=== PATIENT | female | born 1990 | race African-American/Black ===

== ENCOUNTER 2022-10-05 22:30 | Inpatient (IN) | payer OTHER ==
[2022-10-06] MEDS ORDERED: PROMETHAZINE HCL 25 MG/1 ML VIAL IVPUSH ONE (00:15)
[2022-10-06] MEDS: DEXTROSE 5%-LACTATED RINGERS 1,000 ML IV SCH ×2 (00:15→10:16)
[2022-10-06] MEDS ORDERED: DINOPROSTONE 10 MG VAGINAL SUPPOSITORY VG ONE (00:17)
[2022-10-06] MEDS ORDERED: PROMETHAZINE HCL 25 MG/1 ML VIAL ONE (01:12)
[2022-10-06] MEDS ORDERED: BUTORPHANOL TARTRATE 2 MG/ML VIAL ONE (01:12)
[2022-10-06] MEDS ORDERED: AMPICILLIN - 2 GM in SODIUM CHLORIDE 100 ML IVPB ONE (01:15)
[2022-10-06] MEDS ORDERED: AMPICILLIN SODIUM 2 GM VIAL ONE (01:20)
[2022-10-06 01:23] LABS: BASO % 0.3 % (0-2.0); EOS % 0.2 % (0-4.5); HEMATOCRIT 31.9 % (32.4-45.2); HEMOGLOBIN 10.4 GM/dL (10.7-15.3); LYMPH % 14.9 % (8-40); MCH 24.1 pg (25.7-33.7); MCHC 32.5 g/dl (32.0-36.0); MEAN CELL VOLUME 74.1 fl (80-96); MEAN PLT VOLUME 9.8 fl (7.5-11.1); MONO % 8.8 % (3.8-10.2); NEUT % 75.8 % (42.8-82.8); PLATELET COUNT 195 10^3/uL (134-434); RDW 17.9 % (11.6-15.6); WHITE BLOOD COUNT 13.3 K/mm3 (4.0-10.0)
[2022-10-06 01:29] LABS: INR 1.03 (0.83-1.09); PROTHROMBIN TIME (PATIENT) 11.8 SEC (9.7-13.0)
[2022-10-06 01:32] LABS: ACTIVATED PTT 26.4 SECONDS (25.2-36.5)
[2022-10-06 01:41] LABS: CALCIUM 8.9 mg/dL (8.5-10.1)
[2022-10-06 01:42] LABS: BLOOD UREA NITROGEN 7.2 mg/dL (7-18)
[2022-10-06 01:45] LABS: CREATININE 0.6 mg/dL (0.55-1.3)
[2022-10-06 02:20] VITALS: BMI 33.4
[2022-10-06] MEDS ORDERED: BUTORPHANOL TARTRATE 1 MG/ML VIAL IVPB ONE (03:15)
[2022-10-06] MEDS ORDERED: AMPICILLIN SODIUM 1 GM VIAL ONE ×3 (05:02→13:01)
[2022-10-06] MEDS ORDERED: NALOXONE HCL 0.4 MG/ML VIAL IVPUSH PRN (05:36)
[2022-10-06] MEDS ORDERED: FENTANYL/BUPIVACAINE/NS/PF - PCEA - 50 ML DISP.SYRIN EP ONE ×3 (05:37→13:53)
[2022-10-06] MEDS ORDERED: FENTANYL CITRATE/PF 50 MCG/ML VIAL ONE ×4 (05:39→17:33)
[2022-10-06] MEDS: FENTANYL/BUPIVACAINE/NS/PF - PCEA - 50 ML DISP.SYRIN EP SCH ×2 (05:45→06:10)
[2022-10-06 05:54] LABS: HIV INTERPRETATION NEGATIVE (NEGATIVE)
[2022-10-06] MEDS: AMPICILLIN - 1 GM in SODIUM CHLORIDE 100 ML IVPB SCH ×4 (05:58→18:55)
[2022-10-06] MEDS ORDERED: OXYTOCIN 30 UNITS in 0.9% NS 30 UNIT/500 ML INFUS.BAG IVPB SCH (08:00)
[2022-10-06] MEDS ORDERED: OXYTOCIN 30 UNITS in 0.9% NS 30 UNIT/500 ML INFUS.BAG IVPB ONE (13:01)
[2022-10-06] MEDS ORDERED: CITRIC ACID/SODIUM CITRATE 30 ML UNIT-DOSE CUP PO ONE (14:30)
[2022-10-06] MEDS ORDERED: PROPOFOL 20 ML ONE (17:00)
[2022-10-06] MEDS ORDERED: KETOROLAC TROMETHAMINE 30 MG/1 ML VIAL ONE (17:20)
[2022-10-06] MEDS ORDERED: MIDAZOLAM HCL 2 MG/2 ML SINGLE DOSE VIAL ONE (17:22)
[2022-10-06] MEDS ORDERED: DEXAMETHASONE SOD PHOSPHATE 4 MG/1 ML VIAL ONE (17:23)
[2022-10-06] MEDS ORDERED: ONDANSETRON 4 MG/2 ML VIAL ONE (17:23)
[2022-10-06] MEDS ORDERED: OXYTOCIN 20 UNITS in 0.9% NS 20 UNIT/1,000 ML INFUS.BAG IV ONE ×2 (17:47→19:55)
[2022-10-06] MEDS ORDERED: ACETAMINOPHEN 325 MG TABLET (FP) PO PRN (18:08)
[2022-10-06] MEDS ORDERED: METHYLERGONOVINE MALEATE 0.2 MG/1 ML AMP IM PRN (18:08)
[2022-10-06] MEDS ORDERED: IBUPROFEN 800 MG/8 ML IJ IVPB PRN (18:08)
[2022-10-06] MEDS ORDERED: OXYTOCIN 10 UNITS/ML VIAL ONE (18:13)
[2022-10-06] MEDS ORDERED: OXYTOCIN 20 UNITS in 0.9% NS 20 UNIT/1,000 ML INFUS.BAG IV SCH (18:15)
[2022-10-06] MEDS ORDERED: HYDROmorphone *PCA* 10MG/50ML DISP.SYRIN PCA SCH (18:30)
[2022-10-06] MEDS ORDERED: HYDROmorphone *PCA* 10MG/50ML DISP.SYRIN ONE (21:35)
[2022-10-06] MEDS: FERROUS SO4 325 MG TABLET (FP) PO SCH (22:03)
[2022-10-07] MEDS ORDERED: oxyCODONE HCL 5 MG TABLET PO PRN ×2 (06:08)
[2022-10-07 09:30] LABS: HEMATOCRIT 24.6 % (32.4-45.2); HEMOGLOBIN 7.7 GM/dL (10.7-15.3); MCH 23.4 pg (25.7-33.7); MCHC 31.4 g/dl (32.0-36.0); MEAN CELL VOLUME 74.3 fl (80-96); MEAN PLT VOLUME 9.3 fl (7.5-11.1); PLATELET COUNT 147 10^3/uL (134-434); RBC 3.31 M/mm3 (3.60-5.2); RDW 17.9 % (11.6-15.6); WHITE BLOOD COUNT 28.3 K/mm3 (4.0-10.0)
[2022-10-07 11:23] LABS: ANISOCYTOSIS 3+; MACROCYTOSIS 0; OVALOCYTE 2+
[2022-10-07] MEDS: PRENATAL VITAMINS W/ FOLIC ACID TABLET (FP) PO SCH (11:59)
[2022-10-07] MEDS: FERROUS SO4 325 MG TABLET (FP) PO SCH ×2 (11:59→22:13)
[2022-10-07] MEDS ORDERED: BISACODYL 10 MG SUPP.RECT RC PRN (18:08)
[2022-10-07] MEDS: SIMETHICONE 80 MG TAB.CHEW (FP) PO PRN (20:57)
[2022-10-07] MEDS: SENNOSIDES/DOCUSATE COMBO (SENNA PLUS) TABLET (UD) PO PRN (20:57)
[2022-10-08] MEDS: POLYETHYLENE GLYCOL (HEALTHYLAX) 3350 17 GM PACKET PO SCH ×2 (08:44→21:08)
[2022-10-08 09:45] LABS: HEMATOCRIT 24.7 % (32.4-45.2); HEMOGLOBIN 7.9 GM/dL (10.7-15.3); MCH 23.6 pg (25.7-33.7); MCHC 31.8 g/dl (32.0-36.0); MEAN CELL VOLUME 74.2 fl (80-96); MEAN PLT VOLUME 10.2 fl (7.5-11.1); PLATELET COUNT 178 10^3/uL (134-434); RBC 3.34 M/mm3 (3.60-5.2); RDW 18.2 % (11.6-15.6); WHITE BLOOD COUNT 19.9 K/mm3 (4.0-10.0)
[2022-10-08] MEDS: PRENATAL VITAMINS W/ FOLIC ACID TABLET (FP) PO SCH (11:25)
[2022-10-08] MEDS: FERROUS SO4 325 MG TABLET (FP) PO SCH ×2 (11:25→21:08)
[2022-10-08] MEDS: IBUPROFEN 600 MG TABLET (FP) PO PRN ×2 (13:11→21:11)
[2022-10-08] MEDS: SIMETHICONE 80 MG TAB.CHEW (FP) PO PRN ×3 (13:11→21:11)
[2022-10-08] MEDS: SENNOSIDES/DOCUSATE COMBO (SENNA PLUS) TABLET (UD) PO PRN (21:08)
[2022-10-09 08:40] VITALS: BP 105/80; PULSE 90; RESP 16; TEMP 98.2
[2022-10-09] MEDS: PRENATAL VITAMINS W/ FOLIC ACID TABLET (FP) PO SCH (09:25)
[2022-10-09] MEDS: FERROUS SO4 325 MG TABLET (FP) PO SCH (09:25)
[2022-10-09] MEDS: SIMETHICONE 80 MG TAB.CHEW (FP) PO PRN (09:25)
[2022-10-09] MEDS: POLYETHYLENE GLYCOL (HEALTHYLAX) 3350 17 GM PACKET PO SCH (09:25)
[2022-10-09] MEDS: IBUPROFEN 600 MG TABLET (FP) PO PRN (09:25)
== END 2022-10-09 13:40 | disposition home or self-care (01) | DRG 540 ==
LOC: JLDR 22:30 → UNDOADMIN 10-06 00:01 → J3W 10-06 19:54
PROVIDERS: ADMIT Obstetrics & Gynecology; ATTEND Obstetrics & Gynecology
PROC: 10D00Z1 Extraction of Products of Conception, Low, Open Approach (ICD-10-PCS; principal; 2022-10-06)
DX: O48.0 Post-term pregnancy (principal); O69.81X0 Labor and delivery complicated by cord around neck, without compression, not applicable or unspecified; O77.0 Labor and delivery complicated by meconium in amniotic fluid; O34.13 Maternal care for benign tumor of corpus uteri, third trimester; Z37.0 Single live birth; Z3A.40 40 weeks gestation of pregnancy
CPT/HCPCS: 36415; 80048; 85025; 85027; 85610; 85730; 86780; 86850; 86900; 86901; 87389; 88307-TC; C9803-CS; U0003; U0005